=== PATIENT | female | born 2000 | race Caucasian/White ===

== ENCOUNTER 2025-05-31 14:58 | Emergency (ER) | payer OTHER, SELFPAY ==
[2025-05-31 15:00] VITALS: BP 144/85; PULSE 78; RESP 15; TEMP 36.5; O2SAT 99
--- NOTE | 2025-05-31 15:24 | DI.RAD_ITS ---
Exam(s) XR FOOT RT COMPLETE EXAM: XR FOOT RT COMPLETE CLINICAL HISTORY: dropped fridge on foot, focal swelling to forefoot. TECHNIQUE: 2D digital imaging was performed. Three views. COMPARISON: No exams were available for comparison FINDINGS: BONES: No acute fracture is present. No bony destructive lesion is seen. Small plantar calcaneal spur. JOINTS: No dislocation present. SOFT TISSUE: Swelling at dorsum of foot. IMPRESSION: Soft tissue swelling. No evidence of fracture. The preliminary [facility] report was reviewed. DATA REPOSITORY: RADIATION DOSE DELIVERED:
--- NOTE | 2025-05-31 16:18 | DI.[facility]_ITS ---
PROCEDURE INFORMATION: Exam: XR Right Foot Exam date and time: 05/31/2025 3:52 PM Age: 24 years old Clinical indication: Pain; Right; Dropped fridge on foot, focal swelling to forefoot TECHNIQUE: Imaging protocol: Radiologic exam of the right foot. Views: 3 or more views. COMPARISON: No relevant prior studies available. FINDINGS: Bones/joints: Normal. Soft tissues: There is soft tissue swelling at the dorsal level of the forefoot. IMPRESSION: No evidence for fracture. Dictated and Authenticated by: Clary Carrera MD. Orderin Joanna Nichole MD
--- NOTE | 2025-05-31 16:29 | ED.GENADUL_ITS ---
Discharge Plan Disposition Patient Disposition: Home Condition: Stable Discharge Details Clinical Impression: Sprain of right foot Primary Care Provider: Keerthi Bartlett ED Provider: Dionisio Marshall Home Meds and New Rx's Prescriptions: No Action No Known Home Meds Discharge Instructions Instructions: Foot Sprain ED Additional Instructions: You were seen in the emergency department for the sprain of your right foot, there is no fracture to any of the bones of the foot or distal ankle. Please rest, ice, compress and elevate the ankle often over the next few days use crutches for partial weightbearing as tolerated. Please use therapeutic dosing of Tylenol (acetamenophen) & Advil (ibuprofen) in an alternating fashion as follows: Take 1000mg of Tylenol every 6 hours without missing doses- that is 4 times per day. [place] in between the Tylenol dosings, take 400-600mg of Advil also on a 6 hour schedule, that is also 4 times per day. The daily maximum dosing of Tylenol is 4000mg, and the daily maximum dosing of Advil is 2400mg. This is safe to do for weeks. Please note that some common cold medications & prescription pain medications may contain acetamenophen and you need to read OTC drug labels and factor that in to maximum daily dosings. Follow-up with your primary care provider for possible referral to orthopedics if pain persist past 2 weeks Referrals: [facility] [Provider Group] Keerthi Bartlett [Primary Care Provider, Medicine] Discharge Data Discharge Date/Time-TO BE ENTERED AT DEPARTURE: 05/31/25 17:04 HPI General Date/Time Provider Initiated Documentation: 05/31/25 15:04 . HPI Narrative: 24 year-old female presents to ED today by POV/ambulating with her friend with a chief complaint of had a fridge drop on her R foot while attempting to move it, with onset just prior to arrival. Quality described as swelling and pain to anterior forefoot, no radiation to numbness/tingling, open lesion, calf pain, other injury. Severity is described as severe. Palliating factors include nothing specific attempted. Provoking factors include nothing specific. Patient not anticoagulated. Related Data Home Medications ?Medication ?Instructions ?Recorded ?Confirmed Unknown [No Known Home Meds] 05/31/25 0 05/31/25 Allergies Allergy/AdvReac Type Severity Reaction Status Date / Time No Known Allergies Allergy Verified 05/31/25 15:04 General Stated Complaint: Orthopedic HILARIO: 3 Review of Systems All systems reviewed & are unremarkable except as noted in HPI and below Exam Narrative Exam Narrative: GENERAL APPEARANCE: Well-nourished, non-toxic, awake and alert, atraumatic, no acute distress. SKIN: Warm, pink, dry, intact, without rashes/lesions/ulcerations. HEAD: Normocephalic, atraumatic, normal hair distribution for gender/age. EYES: Normal conjunctiva, no exudates on lids/lashes. ENT: Nares patent, no circumoral cyanosis, no facial swelling NECK: Supple, trachea midline, painless cervical ROM. LUNGS/CHEST: Non-labored respirations, normal A/P diameter, symmetrical expansion, no chest wall deformity HEART (CV/PV): Regular rate, R dorsalis pedis pulse 2+, no peripheral edema, no JVD. ABDOMEN: Soft, non-distended, no guarding. MSK: Normal ROM, no deformity to bilateral UEs or LEs, moving all extremities without weakness save for R foot, no cyanosis, spine midline without tenderness, normal curvature. R Foot: swelling anterolateral to lat malleolus, no crepitus, mild ecchymosis, ROM and strength diminished in distal foot due to pain NEURO: Mental Status AAOx4 - alert to person, place, time, events No facial droop, no forehead involvement. Motor: No focal weakness - strength 5/5 in bilateral UEs and LEs, proximal and distal, symmetric. Sensory: sensation intact to light touch globally. Gait antalgic. PSYCH: euthymic, cooperative, pleasant, appropriate speech Course Vital Signs Vital signs: Vital Signs Temperature 36.5 C 05/31/25 15:00 Pulse 78 05/31/25 15:00 Respiratory Rate 15 05/31/25 15:00 Blood Pressure 144/85 H 05/31/25 15:00 Pulse Oximetry 99 05/31/25 15:00 Temperature 36.5 C 05/31/25 15:00 Temperature Source Oral 05/31/25 15:00 Pulse 78 05/31/25 15:00 Respiratory Rate 15 05/31/25 15:00 Blood Pressure 144/85 H 05/31/25 15:00 Blood Pressure Position Sitting 05/31/25 15:00 Pulse Oximetry 99 05/31/25 15:00 Oxygen Delivery Method Room Air 05/31/25 15:00 Oxygen Flow Rate 0 05/31/25 15:00 Pain Level 7 05/31/25 15:00 Medical Decision Making This dictation utilizes [id number] dictation software and may contain unedited grammatical errors. 24 year-old female presents to ED today by POV/ambulating with her friend with a chief complaint of had a fridge drop on her R foot while attempting to move it, with onset just prior to arrival. Quality described as swelling and pain to anterior forefoot, no radiation to numbness/tingling, open lesion, calf pain, other injury. Severity is described as severe. Palliating factors include nothing specific attempted. Provoking factors include nothing specific. Patients' medical history: noncontributory. Family and social history: noncontributory. Pertinent exam findings / vital signs include swelling and mild ecchymosis to the right dorsal foot just distal to the anterolateral to the lateral malleolus, no crepitus to either the medial or lateral malleolus, range of motion diminished due to pain, sensation intact. Differential / pathologies of concern include sprain, contusion, fracture. Diagnostic studies of: -XR R Foot - no fracture seen. Interventions of: -Given ankle boot as she has significant swelling, pain with movement, unable to dorsi/plantarflex with much strength, pain with ambulation may need follow-up XR. ED Course/Assessment/Plan: 23-year-old female fridge dropped on her foot as swelling without fracture and difficulty moving may be has a ligamentous injury or small occult fracture, counseled on RICE therapy and therapy [place] Tylenol or ibuprofen, partial weight-bear as tolerated and provide a short ankle boot, follow-up with orthopedics for any complications. Findings not consistent with fracture or neurovascular compromise. Disposition of Sprain of Right Foot. Patient verbalized understanding of the plan and return to ED criteria and engaged in shared decision making. Medical Records Medical records reviewed: Yes I reviewed the patient's medical records. Imaging Data Radiologic Study: Attestation: I personally reviewed and interpreted this imaging study as follows: Imaging: X-Ray Radiologist's impression: Exam: XR Right Foot Exam date and time: 05/31/2025 3:52 PM Age: 24 years old Clinical indication: Pain; Right; Dropped fridge on foot, focal swelling to forefoot TECHNIQUE: Imaging protocol: Radiologic exam of the right foot. Views: 3 or more views. COMPARISON: No relevant prior studies available. FINDINGS: Bones/joints: Normal. Soft tissues: There is soft tissue swelling at the dorsal level of the forefoot. IMPRESSION: No evidence for fracture. Dictated and Authenticated by: Clary Carrera MD. [facility] All Active Problems (Updated 05/31/25 @ 16:33 by NATHAN Mai) Sprain of right foot (Acute) Social History Smoking risk assessment performed?: No
== END 2025-05-31 17:04 | disposition home or self-care (01) ==
PROVIDERS: Emergency Provider Physician Assistant; PCP Nurse Practitioner Family
DX: S93.601A Unspecified sprain of right foot, initial encounter (principal); X58.XXXA Exposure to other specified factors, initial encounter
CPT/HCPCS: 99283 ×2; 73630